=== PATIENT | female | born 1990 | race Caucasian/White ===

== ENCOUNTER 2017-12-30 22:21 | Outpatient (CLI) | payer OTHER | END 2017-12-31 00:45 | disposition home or self-care (01) | LOC: OBT 22:21 → L-D 22:22 | DX: O36.8130 Decreased fetal movements, third trimester, not applicable or unspecified (principal); O09.523 Supervision of elderly multigravida, third trimester; Z3A.36 36 weeks gestation of pregnancy | CPT/HCPCS: 76818 ==

== ENCOUNTER 2018-01-11 22:29 | Outpatient (CLI) | payer OTHER ==
[2018-01-12] MEDS ORDERED: LACTATED RINGER'S 500 ML IV (01:30)
[2018-01-12] MEDS: LACTATED RINGER'S 1,000 ML IV (01:44)
[2018-01-12] MEDS ORDERED: LACTATED RINGER'S 1,000 ML IV (03:00)
== END 2018-01-12 03:59 | disposition home or self-care (01) ==
LOC: OBT 22:29 → L-D 22:29 → OBT 01-12 03:59
DX: O62.9 Abnormality of forces of labor, unspecified (principal); Z3A.38 38 weeks gestation of pregnancy
CPT/HCPCS: 36415; 76818; 96360; 96361

== ENCOUNTER 2018-01-16 22:18 | Inpatient (IN) | payer OTHER ==
[2018-01-17] MEDS ORDERED: AMPICILLIN 2 GM/NS (PMX) 100 ML IV
[2018-01-17] MEDS ORDERED: LIDOCAINE 1% (MPF) 30 ML INJ INJ
[2018-01-17 00:35] LABS: ADD MAN DIFF? NO
[2018-01-17 00:42] LABS: WHITE BLOOD COUNT 10.5 10^3/ul (4.8-10.8)
[2018-01-17 00:42] LABS: BASOPHILS % 0.4 % (0.0-2.0); EOSINOPHILS # 0.1 10^3/ul (0.0-0.5); EOSINOPHILS % 0.5 % (0.0-7.0); HEMATOCRIT 39.2 % (37.0-47.0); HEMOGLOBIN 13.9 g/dl (12.0-16.0); LYMPHOCYTES # 2.2 10^3/ul (0.8-2.9); LYMPHOCYTES % 20.6 % (15.0-51.0); MEAN CORPUSCULAR HEMOGLOBIN 31.5 pg (29.0-33.0); MEAN CORPUSCULAR HGB CONC 35.5 g/dl (32.0-37.0); MEAN CORPUSCULAR VOLUME 88.9 fl (82.0-101.0); MEAN PLATELET VOLUME 11.3 fl (7.4-10.4); MONOCYTE # 0.7 10^3/ul (0.3-0.9); MONOCYTES % 6.7 % (0.0-11.0); NEUTROPHIL # 7.5 10^3/ul (1.6-7.5); NEUTROPHILS % 71.4 % (39.0-77.0); PLATELET COUNT 239 10^3/UL (140-415); RED BLOOD COUNT 4.41 10^6/ul (4.20-5.40); RED CELL DISTRIBUTION WIDTH 13.1 % (11.5-14.5)
[2018-01-17 00:56] LABS: INR 0.92; PARTIAL THROMBOPLASTIN TIME 29.3 Sec (25.0-35.0); PROTIME 12.4 Sec (11.9-14.9)
[2018-01-17] MEDS: BUTORPHANOL 2 MG INJ IV (01:45)
[2018-01-17 02:01] LABS: HEPATITIS B SURFACE ANTIGEN NEGATIVE (NEGATIVE)
[2018-01-17] MEDS ORDERED: AMPICILLIN 1 GM/NS (PMX) 50 ML IV (04:00)
[2018-01-17] MEDS: LACTATED RINGER'S 1,000 ML IV ×5 (07:28→13:29)
[2018-01-17] MEDS ORDERED: FENTAnyl 2MCG/ML-ROPIV 0.2% 100 ML (08:52)
[2018-01-17] MEDS ORDERED: ZOLPIDEM 5 MG TAB PO ×2 (09:00→21:30)
[2018-01-17] MEDS ORDERED: HYDROmorphONE 0.5 MG/0.5 ML SYG IV ×2 (09:00)
[2018-01-17] MEDS ORDERED: ONDANSETRON 4 MG INJ IV (09:00)
[2018-01-17] MEDS ORDERED: ACETAMINOPHEN 500 MG TAB PO (09:00)
[2018-01-17] MEDS ORDERED: KETOROLAC 30 MG INJ IV (09:00)
[2018-01-17] MEDS ORDERED: NALOXONE (0.4 MG/ML) INJ IV (09:00)
[2018-01-17] MEDS ORDERED: DIPHENHYDRAMINE 50 MG INJ IV (09:00)
[2018-01-17] MEDS: CELECOXIB 200 MG CAP PO (10:49)
[2018-01-17 15:04] LABS: RAPID PLASMA REAGIN NONREACTIVE (NR)
[2018-01-17] MEDS: OXYTOCIN 30 UNITS/LR 500 ML IV ×2 (15:27→19:27)
[2018-01-17] MEDS: FENTAnyl 2MCG/ML-ROPIV 0.2% 100 ML BAG EPI (19:23)
[2018-01-17] MEDS: IBUPROFEN 600 MG TAB PO ×2 (19:24→23:44)
[2018-01-17] MEDS ORDERED: CARBOPROST 250 MCG INJ IM ×2 (21:30)
[2018-01-17] MEDS ORDERED: LANOLIN 7 GM TUBE TOP (21:30)
[2018-01-17] MEDS ORDERED: HYDROCODONE/APAP (5/325) TAB PO ×2 (21:30)
[2018-01-17] MEDS ORDERED: DIBUCAINE 1% 30 GM OINT PR (21:30)
[2018-01-17] MEDS ORDERED: OXYTOCIN 30 UNITS/LR 500 ML IV ×3 (21:30)
[2018-01-17] MEDS ORDERED: WITCH HAZEL/GLYCERIN PAD PR (21:30)
[2018-01-17] MEDS ORDERED: METHYLERGONOVINE 0.2 MG INJ IM ×2 (21:30)
[2018-01-17] MEDS ORDERED: MISOPROSTOL 200 MCG TAB PR ×2 (21:30)
[2018-01-17] MEDS: LACTATED RINGER'S 1,000 ML IV* (23:45)
[2018-01-17] MEDS: BENZOCAINE 20% 56 ML SPRAY TOP (23:45)
[2018-01-17] MEDS: CEPHALEXIN 500 MG CAP PO (23:45)
[2018-01-18] MEDS: LACTATED RINGER'S 1,000 ML IV* ×3 (05:08→21:08)
[2018-01-18] MEDS: CEPHALEXIN 500 MG CAP PO ×3 (05:43→17:58)
[2018-01-18] MEDS: IBUPROFEN 600 MG TAB PO ×3 (05:43→17:57)
[2018-01-18 07:27] LABS: ADD MAN DIFF? NO
[2018-01-18 07:39] LABS: BASOPHILS % 0.3 % (0.0-2.0); EOSINOPHILS # 0.1 10^3/ul (0.0-0.5); EOSINOPHILS % 0.7 % (0.0-7.0); HEMOGLOBIN 11.3 g/dl (12.0-16.0); LYMPHOCYTES # 2.4 10^3/ul (0.8-2.9); LYMPHOCYTES % 19.1 % (15.0-51.0); MEAN CORPUSCULAR HEMOGLOBIN 31.5 pg (29.0-33.0); MEAN CORPUSCULAR HGB CONC 34.2 g/dl (32.0-37.0); MEAN CORPUSCULAR VOLUME 91.9 fl (82.0-101.0); MEAN PLATELET VOLUME 10.1 fl (7.4-10.4); MONOCYTE # 0.7 10^3/ul (0.3-0.9); NEUTROPHILS % 73.4 % (39.0-77.0); PLATELET COUNT 191 10^3/UL (140-415); RED BLOOD COUNT 3.59 10^6/ul (4.20-5.40)
[2018-01-18 07:39] LABS: WHITE BLOOD COUNT 12.3 10^3/ul (4.8-10.8)
[2018-01-18] MEDS: SENNA/DOCUSATE NA (8.6MG/50MG) TAB PO ×2 (09:00→21:00)
[2018-01-18] MEDS: MAGNESIUM HYDROXIDE 30ML CUP PO ×2 (09:00→21:00)
[2018-01-19] MEDS: CEPHALEXIN 500 MG CAP PO ×3 (00:03→11:37)
[2018-01-19] MEDS: IBUPROFEN 600 MG TAB PO ×3 (00:03→11:37)
[2018-01-19] MEDS: LACTATED RINGER'S 1,000 ML IV* (05:08)
[2018-01-19] MEDS: SENNA/DOCUSATE NA (8.6MG/50MG) TAB PO (09:00)
[2018-01-19] MEDS: MAGNESIUM HYDROXIDE 30ML CUP PO (09:00)
[2018-01-19] MEDS: MEASLES,MUMPS,RUBELLA VACCINE INJ SC* (09:44)
[2018-01-19] MEDS: VARICELLA VACCINE LIVE/PF 1,350 UNIT/0.5 ML ML SC* (09:44)
[2018-01-19] MEDS: DIPHTH/TET/ACEL PERTUSS (ADULT) 0.5 ML VIAL IM* (09:44)
== END 2018-01-19 15:49 | disposition home or self-care (01) | DRG 775 ==
LOC: OBT 22:18 → L-D 22:19 → OBT 23:10 → L-D 23:10 → PP1 01-17 21:31
PROVIDERS: Obstetrics & Gynecology
PROC: 10E0XZZ Delivery of Products of Conception, External Approach (ICD-10-PCS; principal; 2018-01-17)
DX: O80 Encounter for full-term uncomplicated delivery (principal); Z37.0 Single live birth; Z3A.39 39 weeks gestation of pregnancy
CPT/HCPCS: 62319; 85025; 85610; 85730; 86592; 86850; 86900; 86901; 87340